=== PATIENT | female | born 1950 | race Caucasian/White ===

== ENCOUNTER → 2016-10-25 | Outpatient (CLI) | payer OTHER ==
[~2016-10-25] MED LIST: CINN1CAP2 PO; MULT-190 PO; OMEG10007 PO; SERT50TA PO; SIMV10TA5 PO; ZNTT/150 PO
== END | disposition home or self-care (01) ==
LOC: C.LABBC 08:54
PROVIDERS: ATTEND Internal Medicine
DX: E78.00 Pure hypercholesterolemia, unspecified (principal)

== ENCOUNTER → 2016-11-28 | Outpatient (CLI) | payer OTHER ==
[2016-11-28 14:35] LABS: BASO % 0.7 %; BASO ABS # 0.06 K/uL (0-0.2); COMPLETE YES; EOS % 2.7 %; HEMATOCRIT 40.7 % (37-47); IG% 0.1 %; LYMPH % 31.7 %; LYMPH ABS # 2.54 K/uL (1.2-3.4); MEAN CELL VOLUME 91.7 fL (80-100); MEAN CORPUSCULAR HEMOGLOBIN 31.8 pg (25-34); MEAN CORPUSCULAR HGB CONC 34.6 g/dl (32-36); MEAN PLATELET VOLUME 10.7 fL (7.4-10.4); MONO % 6.2 %; NEUT % 58.6 %; PLATELET COUNT 226 K/uL (130-400); RED BLOOD COUNT 4.44 M/uL (4.2-5.4); WHITE BLOOD COUNT 8.02 K/uL (4.8-10.8)
[2016-11-28 15:11] LABS: CALCIUM 10.1 mg/dl (8.5-10.1)
[2016-11-28 15:12] LABS: ALT/SGPT 27 U/L (12-78); AST/SGOT 23 U/L (15-37); BLOOD UREA NITROGEN 10 mg/dl (7-18); BUN/CREATININE RATIO 14.2 (10-20); CARBON DIOXIDE 26 mmol/L (21-32); CHLORIDE 106 mmol/L (98-107); CREATININE 0.71 mg/dl (0.60-1.20); GLUCOSE 88 mg/dl (70-99); POTASSIUM 4.2 mmol/L (3.5-5.1); SODIUM 139 mmol/L (136-145)
[2016-11-28 15:15] LABS: ALB/GLOB RATIO 1.1 (0.9-2); ALKALINE PHOSPHATASE 81 U/L (45-117)
[2016-11-28 16:48] LABS: LYME DISEASE AB IGM NEG (NEG)
[2016-11-28 16:51] LABS: LYME DISEASE AB IGG NEG (NEG)
== END | disposition home or self-care (01) ==
LOC: C.LAB1850 13:32
PROVIDERS: ATTEND Internal Medicine
DX: K57.90 Diverticulosis of intestine, part unspecified, without perforation or abscess without bleeding (principal); R42 Dizziness and giddiness

== ENCOUNTER → 2017-04-25 | Outpatient (CLI) | payer OTHER ==
[2017-04-25 11:26] LABS: ALT/SGPT 24 U/L (12-78); AST/SGOT 12 U/L (15-37); BLOOD UREA NITROGEN 10 mg/dl (7-18); BUN/CREATININE RATIO 15.8 (10-20); CALCIUM 9.3 mg/dl (8.5-10.1); CARBON DIOXIDE 27 mmol/L (21-32); CHLORIDE 108 mmol/L (98-107); CREATININE 0.66 mg/dl (0.60-1.20); GLUCOSE 96 mg/dl (70-99); POTASSIUM 3.9 mmol/L (3.5-5.1); SODIUM 140 mmol/L (136-145); TRIGLYCERIDES 160 mg/dl (0-150); VERY LOW DENSITY LIPOPROT CALC 32 mg/dl
[2017-04-25 11:32] LABS: ALB/GLOB RATIO 0.9 (0.9-2); ALKALINE PHOSPHATASE 83 U/L (45-117); CHOLESTEROL 225 mg/dl (0-200); CHOLESTEROL/HDL RATIO 3.6; HDL CHOLESTEROL 63 mg/dl; LDL CHOLESTEROL CALCULATED 130 mg/dl
== END | disposition home or self-care (01) ==
LOC: C.LABBC 08:42
PROVIDERS: ATTEND Internal Medicine
DX: E78.00 Pure hypercholesterolemia, unspecified (principal)

== ENCOUNTER → 2017-08-06 | Outpatient (CLI) | payer OTHER ==
--- NOTE | 2017-08-06 14:28 | MAMMOGRAPHY REPORT ---
UNILATERAL RIGHT DIGITAL SCREENING MAMMOGRAM TOMOSYNTHESIS WITH CAD: 08/06/2017 CLINICAL HISTORY: Asymptomatic. Personal history of breast cancer. TECHNIQUE: Right breast tomosynthesis in addition to standard 2D mammography was performed. Current jesenia barbosa was also evaluated with a Computer Aided Detection (CAD) system. COMPARISON: Comparison is made to exams dated: 06/12/2016 mammogram, 06/08/2015 mammogram, 04/22/2014 mammogram, 04/21/2013 mammogram, 04/14/2012 mammogram, and 04/06/2011 mammogram - [facility]. BREAST COMPOSITION: There are scattered areas of fibroglandular density in the right breast. FINDINGS: No suspicious mass, architectural distortion or cluster of suspicious microcalcifications is seen. IMPRESSION: ACR BI-RADS CATEGORY 1: NEGATIVE There is no mammographic evidence of malignancy. A 1 year screening mammogram is recommended. The pa tient will receive written notification of the results. Approximately 10% of breast cancers are not detected with mammography. A negative mammographic report should not delay biopsy if a clinically suggestive mass is present. Liz Crook M.D. ay/:08/06/2017 13:35:55 Application Packaging Specialist: Yuliya PIKE(Romeo)(M), [facility] letter sent: Normal 1/2 BI-RADS Code: ACR BI-RADS Category 1: Negative
== END | disposition home or self-care (01) ==
LOC: C.MAMM 12:25
PROVIDERS: ATTEND Obstetrics & Gynecology
DX: Z12.31 Encounter for screening mammogram for malignant neoplasm of breast (principal); Z90.12 Acquired absence of left breast and nipple

== ENCOUNTER → 2017-10-28 | Outpatient (CLI) | payer OTHER ==
[~2017-10-28] MED LIST changes: +RANI150T85 PO; -ZNTT/150 PO
[2017-10-28 14:49] LABS: ALBUMIN 3.9 gm/dl (3.4-5.0); ALT/SGPT 22 U/L (12-78); BLOOD UREA NITROGEN 10 mg/dl (7-18); CALCIUM 9.6 mg/dl (8.5-10.1); CARBON DIOXIDE 26 mmol/L (21-32); CHOLESTEROL 255 mg/dl (0-200); CREATININE 0.78 mg/dl (0.60-1.20); GLUCOSE 94 mg/dl (70-99); POTASSIUM 3.5 mmol/L (3.5-5.1); SODIUM 138 mmol/L (136-145)
[2017-10-28 14:52] LABS: ALKALINE PHOSPHATASE 84 U/L (45-117); AST/SGOT 15 U/L (15-37); LDL CHOLESTEROL CALCULATED 160 mg/dl; TOTAL PROTEIN 7.7 gm/dl (6.4-8.2)
== END | disposition home or self-care (01) ==
LOC: C.LABBC 09:39
PROVIDERS: ATTEND Internal Medicine
DX: E78.00 Pure hypercholesterolemia, unspecified (principal)

== ENCOUNTER → 2017-11-06 | Outpatient (CLI) | payer OTHER | END | disposition home or self-care (01) | LOC: C.PAPS 11:47 | PROVIDERS: ATTEND Obstetrics & Gynecology | DX: Z01.419 Encounter for gynecological examination (general) (routine) without abnormal findings (principal); Z78.0 Asymptomatic menopausal state ==

== ENCOUNTER → 2017-12-13 | Outpatient (CLI) | payer OTHER ==
[2017-12-13 13:21] LABS: ALBUMIN 3.8 gm/dl (3.4-5.0); TOTAL PROTEIN 7.7 gm/dl (6.4-8.2)
== END | disposition home or self-care (01) ==
LOC: C.LAB1850 10:22
PROVIDERS: ATTEND Internal Medicine
DX: E78.00 Pure hypercholesterolemia, unspecified (principal)

== ENCOUNTER 2024-01-21 14:43 | Inpatient (IN) ==
--- NOTE | 2024-01-21 14:49 | ED Triage Note ---
Date of Service January 21, 2024 Provider in Triage Author: Allan Marcano History of Present Illness This patient was briefly evaluated while in triage. An abbreviated physical exam was performed. This patient is a 73-year-old Female who presents to the ED for evaluation of tachycardia. At routine checkup today and noted to be tachycardic. Used bleach today and notes has happened before when uses bleach. No CP, dyspnea, Fevers or chills. Recently started new medicine: wellbutrin. Physical Exam GENERAL: 73 year old female. In no acute distress. SKIN: No lesions or rashes. HEART: tachycardic at regular rate. LUNGS: Clear to auscultation. NEURO: Alert and oriented. No deficits. MUSCULOSKELETAL: No deformities to inspection of the extremities. PSYCH: Patient is pleasant and answers all questions appropriately. Initial orders for labs and / or imaging were placed and patient was placed. Please see further documentation for the full ED course.
[2024-01-21] MEDS: SODIUM CHLORIDE 0.9% 1,000 ML IV ONE (15:14)
[2024-01-21 15:21] LABS: Basophils # (auto) 0.08 K/uL (0.00-0.20); Basophils % (auto) 0.9 %; Eosinophils # (auto) 0.46 K/uL (0.00-0.50); Eosinophils % (auto) 5.4 %; Hematocrit (blood only) 41.7 % (37.0-47.0); Hemoglobin 14.8 g/dl (12.0-16.0); Immature Granulocytes # (auto) 0.02 K/uL (0.01-0.20); Immature Granulocytes % (auto) 0.2 %; Lymphocytes # (auto) 3.06 K/uL (1.20-3.40); Lymphocytes % (auto) 35.8 %; Mean Corpuscular Hemoglobin 31.9 pg (25.0-34.0); Mean Corpuscular Hgb Conc 35.5 g/dL (32.0-36.0); Mean Corpuscular Volume 89.9 fL (80.0-100.0); Mean Platelet Volume 10.1 fL (9.4-12.4); Monocytes # (auto) 0.67 K/uL (0.11-0.59); Monocytes % (auto) 7.8 %; Neutrophils # (auto) 4.25 K/uL (1.40-6.50); Neutrophils % (auto) 49.9 %; Platelet Count 212 K/uL (130-400); RDW Coefficient of Variation 12.8 % (11.5-14.5); RDW Standard Deviation 41.4 fL (36.4-46.3); Red Blood Count 4.64 M/uL (4.20-5.40); White Blood Count 8.54 K/ul (4.8-10.8)
--- NOTE | 2024-01-21 15:26 | XRay Report ---
XR chest 1V portable CLINICAL HISTORY: Tachycardia COMPARISON STUDY: Chest CT April 04, 2022. Chest radiograph December 16, 2023. FINDINGS: Lung volumes are normal. There is no consolidation. Linear left basilar densities favor ate lectasis.. There is no pneumothorax or pleural effusion. Cardiac size is normal. Mediastinal contours are normal. There is no evidence for pulmonary edema. Left chest wall surgical clips are incidentall y noted. IMPRESSION: No acute cardiopulmonary findings. ACT 112: Negative or not required by law. Electronically signed by: Angel Snyder M.D. 01/21/2024 3:24 PM
[2024-01-21 15:43] LABS: Albumin Globulin Ratio 1.4 (0.9-2); Albumin Level 4.5 gm/dl (3.4-5.0); BUN Creatinine Ratio 11.5 (10-20); Bilirubin,Total 0.5 mg/dl (0.2-1.0); Creatinine Clr Calc Pharmacy 39.4 ml/min; Est GFR (African American) 61.7 ml/min; Est GFR (Non-African American) 53.3 ml/min; Globulin 3.2 gm/dl (2.5-4.0); Magnesium 1.9 mg/dl (1.7-2.4); Potassium 3.7 mmol/L (3.5-5.1); Total Protein 7.7 gm/dl (6.0-8.3)
[2024-01-21 15:49] LABS: INR 0.9 (0.9-1.1); Partial Thromboplastin Ratio 0.9; Partial Thromboplastin Time 25 Seconds (21-31); Prothrombin Time 10.3 Seconds (9.0-12.0); Troponin I High Sensitivity 3.9 pg/ml (0-14)
[2024-01-21 15:58] LABS: Thyroid Stimulating Hormone 1.843 uIu/ml (0.300-4.500)
[2024-01-21] MEDS: METOPROLOL TARTRATE 1 MG/ML VIAL IV STA ×2 (16:02→17:02)
--- NOTE | 2024-01-21 16:48 | Electrocardiogram Report ---
Test Reason : Blood Pressure : / mmHG Vent. 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 rate has increased BY [address] now depressed in Anterolateral leads Confirmed by Med Langford ([id number]) on 01/21/2024 4:48:33 PM Referred By: Confirmed By:Med Langford
--- NOTE | 2024-01-21 17:08 | Emergency Department Note ---
Impression & Plan Tachycardia, Hypertension, Palpitations, New onset atrial flutter, Atrial flutter with rapid ventricular response ED Provider Note NAME: DAVID FRANKLIN AGE: 73 SEX: F : 1950 ARRIVES VIA: Walk-In INFORMANT: Patient ED PROVIDER(S): Chris Chao MD CHIEF COMPLAINT: Tachycardia, referred. PLAN: Disposition: Admit MEDICAL DECISION MAKING: The patient is a pleasant 73-year-old woman with a past medical history of acid reflux, anxiety who presents to the emergency department via walk-in, referred by her primary care doctor for evaluation of ongoing tachycardia in the setting of being seen today for a regularly scheduled well visit and it was noted that her heart rate was in the 150s and did not improve despite being observed there. Patient reports that she noticed her heart racing today after she was cleaning her house and had use of bleach. She does point out that she has come to associated this sensation to other episodes when she had used bleach. She denies any recent fevers, chills, cough, congestion, GI or symptoms. She admits she is probably dehydrated as she did go outside yesterday and today only had her usual 3 cups of coffee. She recently started Wellbutrin a month ago. On my evaluation the patient is no distress, afebrile with heart in the 150s with blood pressure 140s-170s/80s-110s and vital signs otherwise stable. She appears clinically dry. EKG demonstrates suspected atrial flutter with heart rate of [address] elevation or depression, QTc is 434 QRS is 90. CXR negative for acute cardiopulmonary process per my personal preliminary review/interpretation. WBC, H/H and platelets within normal limits. Chemistry without metabolic acidosis. Electrolytes LFTs are unremarkable. HS troponin 3.9, within normal limits. TSH within normal limits. The patient was treated with 1 L of IV fluid hydration with normal saline. There is no significant change in her heart rate. She was subsequently given 5 mg of IV Lopressor and heart rate did improve to the 110s. Given her persistence of tachycardia with suspicion of atrial flutter she does agree plan for admission for management. A second dose of 5 mg of IV Lopressor was ordered. Case was discussed with Jose Infante [facility] PAC and Dr. Gutierrez [facility] hospitalist who will evaluate the patient for admission. Further management per admitting team. Triage Nursing notes reviewed and agree them. Prior/external medical records reviewed Vital Signs: reviewed Differential diagnosis: Premature contractions, electrolyte abnormality, cardiac dysrhythmia, thyroid dysfunction, pulmonary embolism, infection, gastrointestinal, as well as other pathologies. ER treatment provided: See below. Diagnostics interpreted by me: ECG: Suspected atrial flutter with heart rate of [address] elevation or depression, QTc is 434 QRS is 90. Cardiac Monitoring: An order for continuous cardiac monitoring was placed and demonstrated Suspected atrial flutter, 141 bpm. Laboratory studies: See below Imaging studies: See below Consultation(s): Case was discussed with Jose Infante, [facility] PAC and Dr. Gutierrez, [facility] hospitalist who will evaluate the patient for admission. HPI: The patient is a pleasant 73-year-old woman with a past medical history of acid reflux, anxiety who presents to the emergency department via walk-in, referred by her primary care doctor for evaluation of ongoing tachycardia in the setting of being seen today for a regularly scheduled well visit and it was noted that her heart rate was in the 150s and did not improve despite being observed there. Patient reports that she noticed her heart racing today after she was cleaning her house and had use of bleach. She does point out that she has come to associated this sensation to other episodes when she had used bleach. She denies any recent fevers, chills, cough, congestion, GI or symptoms. She admits she is probably dehydrated as she did go outside yesterday and today only had her usual 3 cups of coffee. She recently started Wellbutrin a month ago. ROS: See above HPI for pertinent positives & negatives. A total of 10 systems reviewed and were otherwise negative. VITALS:See Below PHYSICAL EXAMINATION: GENERAL: Awake, alert, well-appearing, in no distress HENT: Normocephalic, atraumatic. Oropharynx with dry mucous membranes and otherwise unremarkable. EYES: Normal conjunctiva. Sclera non-icteric. NECK: Supple. No nuchal rigidity. FROM. No JVD. RESPIRATORY: Clear to auscultation. CARDIAC: Tachycardic rate, normal rhythm. Extremities warm and well perfused. Pulses equal. ABDOMEN: Soft, non-distended. No tenderness to palpation. No rebound or guarding. No masses. MUSCULOSKELETAL: Chest examination reveals no tenderness. The back is symmetrical on inspection without obvious abnormality. There is no CVA tenderness to palpation. No joint edema. LOWER EXTREMITIES: Calves are equal size bilaterally and non-tender. No edema. No discoloration. NEURO: Normal sensorium. No sensory or motor deficits noted. SKIN: No rash or jaundice noted. ED COURSE: Critical Care: I have personally spent greater than 35 minutes of critical care time in the direct management of this patient. This includes bedside care, interpretation of diagnostic studies, and testing, discussion with consultants, patient, and family members, and other required patient management activities. This 35 minutes is in excess of all separately billable procedures. Chris Chao MD Past Med/Surg History Problem List (Updated 01/21/24 @ 21:12 by Chris Chao MD) Atrial flutter with rapid ventricular response (Acute) New onset atrial flutter (Acute) Palpitations (Acute) Hypertension (Acute) Tachycardia (Acute) Abnormal breathing sounds Hyperglycemia Tubular adenoma of colon HEMICOLECTOMY Tricuspid regurgitation Mild TR on 2019 echo. SNHL (sensorineural hearing loss) Other ovarian cyst, left side Lichen sclerosus et atrophicus Internal hemorrhoids History of malignant neoplasm of breast Gastroesophageal reflux disease Atrial premature complex Anxiety Abnormal ultrasound of neck Tonsillar enlargement Seasonal allergies Adverse reaction to anesthetic agent vomiting after long surgery Gingival cyst Allergic rhinitis Sialoadenitis of submandibular gland Hyperlipidemia History of colon polyps Medical History Encounter for vitamin deficiency screening Chronic gastritis HX: breast cancer dx 1994 - Lt breast - treated surgically Anxiety and depression Encounter for immunization Dysuria Vagina, candidiasis Lymphadenopathy of right cervical region Palpable lymph node Depression Hypercholesterolemia Surgical History H/O excision of mass Rt submandibular Nausea and vomiting after administration of anesthetic agent History of esophagogastroduodenoscopy (EGD) History of colonoscopy History of cholecystectomy History of herniorrhaphy History of tooth extraction History of cataract surgery RT/LEFT H/O laparoscopy H/O right hemicolectomy REOCCURING ADENOMA (BENIGN) Hernia lower abdominal incisional H/O section H/O mastectomy LEFT WITH RECONSTRUCTION Family History Mother Diabetes Lung cancer Family history of diabetes mellitus Brother Diabetes Other No family history of adverse response to anesthesia No family history of bleeding disorder Denies family history of Colon cancer Ovarian cancer Prostate cancer Myocardial infarction Breast cancer Social History Smoking Status: Never smoker Second Hand Exposure: Yes ( A CHILD); Do You Dip or Chew Tobacco: No; Hx Alcohol Use: Yes Alcohol type: wine Alcohol Intake Frequency: 2-3 x/Week Hx Substance Use: No Preferred Language: Amharic Communication Ability: Effective Visual Impairment: No Limitations Hearing Ability: Normal Stencil Inspector Required: No Beliefs That Will Affect Care: None marital status: Current Living Situation: Spouse current occupational status: retired Feels Safe at Home: Yes Dental Care, Regularly: Yes Physical Activity Frequency: Does not Exercise Seatbelt Use: always Sunscreen Use: Yes Assistive Devices: Glasses Allergies Allergies Allergy/AdvReac Type Severity Reaction Status Date / Time Sulfa (Sulfonamide Allergy Intermediate RASH Verified 01/21/24 16:49 Antibiotics) atorvastatin AdvReac Intermediate muscle Verified 01/21/24 16:49 weakness buspirone [From BuSpar] AdvReac Intermediate dizziness Verified 01/21/24 16:49 lovastatin AdvReac Intermediate muscle Verified 01/21/24 16:49 weakness pravastatin AdvReac Intermediate muscle Verified 01/21/24 16:49 weakness simvastatin AdvReac Intermediate muscle Verified 01/21/24 16:49 weakness venlafaxine AdvReac Intermediate Hypertensio Verified 01/21/24 16:49 n Home Meds Home Medications Medication Instructions Recorded Confirmed vit C 250 mg-vit E 90 mg-zinc 40 1 tab PO BID 04/19/20 01/21/24 mg-copper 1 [id number] capsule (PreserVision AREDS-2) fluticasone propionate 50 1 spray intranasal DAILY PRN 01/06/21 01/21/24 mcg/actuation nasal Allergy Symptoms spray,suspension (Flonase Allergy Relief) multivitamin 1 tab PO QAM 01/06/21 01/21/24 hydrocortisone 2.5 % topical 1 applic topical BID PRN 01/21/24 01/21/24 ointment DIRECTED rosuvastatin 5 mg tablet 5 mg PO 2XWK 01/21/24 01/21/24 Previous Rx's Medication Instructions Recorded escitalopram oxalate 20 mg tablet 20 mg PO DAILY #90 tabs 03/25/24 metronidazole 0.75 % topical cream 1 applic topical .COMPLEX #45 grams 10/30/23 pantoprazole 20 mg tablet,delayed 20 mg PO QAM PRN GERD #30 tabs 12/19/23 release bupropion HCl 150 mg 24 hr tablet, 150 mg PO QAM #30 tabs 01/13/24 extended release (Wellbutrin XL) Results & Data (ED) Vital Signs Vital Signs - 24 hr 01/21/24 14:46 01/21/24 15:16 01/21/24 15:17 Temperature 36.5 C Temperature Source Temporal Artery Scan Pulse Rate 154 H Pulse Rate [Apical] 138 H Pulse Strength [Apical] Respiratory Rate 20 18 Respiratory Effort / Characteristics Non-Labored Spontaneous Respiratory Depth Normal Respiratory Pattern Regular Blood Pressure 154/83 H Blood Pressure [Right Arm] 160/114 H Blood Pressure Mean 106 Blood Pressure Mean [Right Arm] 129 Pulse Oximetry 99 94 93 Oxygen Delivery Method Room Air Room Air Room Air Sepsis Recent Fever Within 48 Hours No Sepsis New/Unexplained Change in Mental Status N/A Sepsis Action Taken by Nursing No Action Required 01/21/24 15:57 01/21/24 16:02 01/21/24 16:23 Temperature Temperature Source Pulse Rate 141 H 143 H 117 H Pulse Rate [Apical] Pulse Strength [Apical] Respiratory Rate Respiratory Effort / Characteristics Respiratory Depth Respiratory Pattern Blood Pressure 177/114 H 159/113 H Blood Pressure [Right Arm] Blood Pressure Mean Blood Pressure Mean [Right Arm] Pulse Oximetry Oxygen Delivery Method Sepsis Recent Fever Within 48 Hours Sepsis New/Unexplained Change in Mental Status Sepsis Action Taken by Nursing 01/21/24 16:51 01/21/24 17:02 Temperature Temperature Source Pulse Rate 114 H Pulse Rate [Apical] 112 H Pulse Strength [Apical] Normal Respiratory Rate 19 Respiratory Effort / Characteristics Non-Labored Spontaneous Respiratory Depth Normal Respiratory Pattern Regular Blood Pressure 148/103 H Blood Pressure [Right Arm] 152/101 H Blood Pressure Mean Blood Pressure Mean [Right Arm] 118 Pulse Oximetry 98 Oxygen Delivery Method Room Air Sepsis Recent Fever Within 48 Hours Sepsis New/Unexplained Change in Mental Status Sepsis Action Taken by Nursing Laboratory Data Attestation: I reviewed the patient's lab results. 01/21/24 15:05 01/21/24 15:05 Lab Results 06/25/24 06/25/24 Range/Units 15:05 15:07 WBC 8.54 (4.8-10.8) K/ul RBC 4.64 (4.20-5.40) M/uL Hgb 14.8 (12.0-16.0) g/dl Hct 41.7 (37.0-47.0) % MCV 89.9 (80.0-100.0) fL MCH 31.9 (25.0-34.0) pg MCHC 35.5 (32.0-36.0) g/dL RDW Std Deviation 41.4 (36.4-46.3) fL RDW Coeff of Angel 12.8 (11.5-14.5) % Plt Count 212 (130-400) K/uL MPV 10.1 (9.4-12.4) fL Immature Gran % (Auto) 0.2 % Neut % (Auto) 49.9 % Lymph % (Auto) 35.8 % Griggs % (Auto) 7.8 % Eos % (Auto) 5.4 % Baso % (Auto) 0.9 % Neut # (Auto) 4.25 (1.40-6.50) K/uL Lymph # (Auto) 3.06 (1.20-3.40) K/uL Griggs # (Auto) 0.67 H (0.11-0.59) K/uL Eos # (Auto) 0.46 (0.00-0.50) K/uL Baso # (Auto) 0.08 (0.00-0.20) K/uL Immature Gran # (Auto) 0.02 (0.01-0.20) K/uL PT 10.3 (9.0-12.0) Seconds INR 0.9 (0.9-1.1) APTT 25 (21-31) Seconds PTT Ratio 0.9 D-Dimer 660 H* (0-500) ug/L FEU Sodium 137 (136-145) mmol/L Potassium 3.7 (3.5-5.1) mmol/L Chloride 104 (98-107) mmol/L Carbon Dioxide 24 (21-32) mmol/L Anion Gap 9 (3-11) BUN 12 (6-23) mg/dl Creatinine 1.04 (0.6-1.2) mg/dl Est Cr Clr Drug Dosing 39.4 ml/min Est GFR ( Amer) 61.7 ml/min Est GFR (Non-Af Amer) 53.3 ml/min BUN/Creatinine Ratio 11.5 (10-20) Glucose 98 (70-99(Fasting)) mg/dl Calcium 10.0 (8.6-10.3) mg/dl Magnesium 1.9 (1.7-2.4) mg/dl Total Bilirubin 0.5 (0.2-1.0) mg/dl AST 21 (13-39) U/L ALT 17 (7-52) U/L Alkaline Phosphatase 74 (34-104) U/L Troponin I High Sens 3.9 (0-14) pg/ml Total Protein 7.7 (6.0-8.3) gm/dl Albumin 4.5 (3.4-5.0) gm/dl Globulin 3.2 (2.5-4.0) gm/dl Albumin/Globulin Ratio 1.4 (0.9-2) TSH 1.843 (0.300-4.500) uIu/ml Free T4 0.85 (0.61-1.60) ng/dl Free T3 3.02 (2.3-4.2) pg/ml Administered Medications Heparin Sodium/Dextrose (Heparin Sodium/Dextrose) 25,000 units in 500 mls @ 12 mls/hr IV .Q24H [facility]; Protocol Stop: 02/20/24 18:14 Last Admin: 01/21/24 18:29 Dose: 600 units/hr, 12 mls/hr Documented By: THOMAS Co-signed By: ALONDRA Discontinued Medications Heparin Sodium (Porcine) (Heparin Sod (Porcine) 1000 Unit/Ml) 3,000 units IV NOW ONE Stop: 01/21/24 18:16 Last Admin: 01/21/24 18:28 Dose: 3,000 units Documented By: THOMAS Co-signed By: ALONDRA Heparin Sodium/Dextrose (Heparin Iv Adult Wt-Based Low-Dose W/ Initial Bolus Protocol) 1 each IV Q15M [facility]; Protocol Stop: 01/21/24 18:31 Last Admin: 01/21/24 18:32 Dose: Not Given Documented By: THOMAS Sodium Chloride (Nss) 1,000 mls @ 999 mls/hr IV .Q1H1M ONE Stop: 01/21/24 16:03 Last Infusion: 01/21/24 16:23 Dose: Infused Documented By: Admin: 01/21/24 15:14 Dose: 999 mls/hr Documented By: THOMAS Magnesium Sulfate/Dextrose (Magnesium Sulfate / D5w) 1 gm in 100 mls @ 50 mls/hr IV 1730 ONE Stop: 01/21/24 19:29 Last Infusion: 01/21/24 19:59 Dose: Infused Documented By: Admin: 01/21/24 17:25 Dose: 50 mls/hr Documented By: WILLIAM Ioversol (Optiray 320 125ml) 119 ml IV ONCE ONE Stop: 01/21/24 18:07 Last Admin: 01/21/24 18:07 Dose: 119 ml Documented By: HENNA Metoprolol Tartrate (Metoprolol Tartrate 1 Mg/Ml Vial) 5 mg IV NOW STA Stop: 01/21/24 16:00 Last Admin: 01/21/24 16:02 Dose: 5 mg Documented By: THOMAS Metoprolol Tartrate (Metoprolol Tartrate 1 Mg/Ml Vial) 5 mg IV NOW STA Stop: 01/21/24 16:57 Last Admin: 01/21/24 17:02 Dose: 5 mg Documented By: THOMAS Potassium Chloride (Potassium Chloride Crtab 20 Meq Tabcr) 40 meq PO NOW STA Stop: 01/21/24 17:18 Last Admin: 01/21/24 17:25 Dose: 40 meq Documented By: WILLIAM Imaging Data Radiologist's Impression: Chest X-Ray 01/21/24 14:49 XR chest 1V portable CLINICAL HISTORY: Tachycardia COMPARISON STUDY: Chest CT April 04, 2022. Chest radiograph December 16, 2023. FINDINGS: Lung volumes are normal. There is no consolidation. Linear left basilar densities favor atelectasis.. There is no pneumothorax or pleural effusion. Cardiac size is normal. Mediastinal contours are normal. There is no evidence for pulmonary edema. Left chest wall surgical clips are incidentally noted. IMPRESSION: No acute cardiopulmonary findings. ACT 112: Negative or not required by law. Electronically signed by: Angel Snyder M.D. 01/21/2024 3:24 PM Discharge Plan Visit Data Chief Complaint: Referred by Doctor Stated Complaint: DOCTOR REFERRED ED Provider: Chris Chao Discharge Problem: Tachycardia, Hypertension, Palpitations, New onset atrial flutter, Atrial flutter with rapid ventricular response Patient Disposition: Admitted As Inpatient Discharge Instructions Interventions: ED Discharge Assessment Last Done: 01/21/24 18:37 Discharge Problem: Hypertension Qualifiers: Hypertension type: unspecified Qualified Code(s): I10 - Essential (primary) hypertension
--- NOTE | 2024-01-21 17:23 | History & Physical Report ---
Date of Service January 21, 2024 Assessment & Plan (1) Tachycardia: Plan: Admit to the PCU on telemetry Patient is currently stable with heart rate in the low 100s to 110s at the time of exam Was initially sent to the ED from her PCPs office after being found to be tachycardic with heart rate in the 130s Patient reports minimal symptoms initially while walking into her PCPs office, currently asymptomatic at rest Patient's initial EKG while heart rate was in the 140s appeared more consistent with sinus tachycardia, however once her heart rate was slowed to the 110s it appears she has flutter waves Initial high-sensitivity troponin was within normal limits, mag was noted to be 1.9 and potassium 3.7 Patient was given a total of 1 L normal saline and 2 doses of 5 mg IV Lopressor prior to admission Review of her medication list shows Wellbutrin does have tachycardia as a possible side effect, she did just start this approximate 1 month ago, we will hold for now. Stat D-dimer ordered at the time of admission is elevated at 660, therefore we will order a stat CT of the chest with IV contrast with PE protocol to monitor for pulmonary emboli At this time we will begin a low-dose, weight-based heparin drip with bolus, if her CT chest is positive for PE and we will adjust her heparin drip dosing Will add as needed IV Lopressor for sustained heart rate greater than 130 overnight Will obtain 2-hour high-sensitivity troponin now patient still stable and will hold further trending overnight Cardiology consult has been ordered Will obtain TTE tomorrow Heparin drip for DVT prophylaxis Heart healthy diet AM CBC, CMP, mag, PT/INR (2) Hyperlipidemia: Plan: continue rosuvastatin (3) Anxiety: Plan: Holding Wellbutrin for now with possible side effect of tachycardia Can continue Lexapro at this time Plan The patient was discussed with Dr. Gutierrez at the time of the admission History of Present Illness Chief Complaint: Tachycardia Primary Care Provider: Maritza Hu MD Norma is a 73-year-old female with a past medical history significant for anxiety, GERD, hyperlipidemia, who presented to the [facility] ED on 01/21/2024 at the recommendation of her PCP after she was noted to be persistently tachycardic while at her PCPs office. Per the ED staff and review of the PCP note from today the patient presented to the PCP office due to two 1 month follow-up as she been started on Wellbutrin approximately 1 month ago for her anxiety. While at the office she was noted to be tachycardic with heart rate into the 130s. On arrival to the ED she was noted to be tachycardic with heart rate in the 130s to 150s but otherwise stable. Labs including CBC, INR, CMP, high-sensitivity troponin, TSH were within normal limits. Potassium was noted to be 3.7 and magnesium was noted to be 1.9. Her initial EKG was obtained when heart rate was in the 140s and was initially read as sinus tachycardia. Chest x-ray was read as negative for acute findings. The patient was initially given 1 L normal saline in the ED and 5 mg IV Lopressor. Repeat EKGs were obtained when heart rate was in the 110s and the patient appeared to have flutter waves in leads V3 and lead to. Prior to admission she was given an additional 5 mg IV Lopressor. Patient was sitting in bed in no acute distress at the time exam with her bedside. She confirms the above history. States that she had a distant history of tachycardia and was seen by the [facility] cardiology group in the past for this as she had a Holter monitor placed. She states at that time because the episodes were very infrequent and lasted short period of time no intervention or medication warranted. Patient denies recent fever/chills, chest pain, pleuritic chest pain, cough/hemoptysis, abdominal pain, nausea/vomiting, diarrhea, dysuria, hematuria, melena, lower extremity swelling, and recent trauma. She is a full code and her is her POA. I had a discussion with the patient and her regarding starting anticoagulation tonight with possible atrial flutter and [id number] score of 2. The patient denies previous history of major bleeding and denies any recent bleeding. At this time she is in agreement with starting heparin drip but would want to discuss further with cardiology tomorrow regarding long-term anticoagulation if required. Please refer to Dr. Gutierrez attestation for any changes to the treatment plan Allergies Allergy/AdvReac Type Severity Reaction Status Date / Time Sulfa (Sulfonamide Allergy Intermediate RASH Verified 01/21/24 16:49 Antibiotics) atorvastatin AdvReac Intermediate muscle Verified 01/21/24 16:49 weakness buspirone [From BuSpar] AdvReac Intermediate dizziness Verified 01/21/24 16:49 lovastatin AdvReac Intermediate muscle Verified 01/21/24 16:49 weakness pravastatin AdvReac Intermediate muscle Verified 01/21/24 16:49 weakness simvastatin AdvReac Intermediate muscle Verified 01/21/24 16:49 weakness venlafaxine AdvReac Intermediate Hypertensio Verified 01/21/24 16:49 n Home Medications Medication Instructions Recorded Confirmed Type vit C 250 mg-vit E 90 mg-zinc 40 1 tab PO BID 04/19/20 01/21/24 History mg-copper 1 [id number]-khyrog-coxysh capsule (PreserVision AREDS-2) fluticasone propionate 50 1 spray intranasal DAILY PRN 01/06/21 01/21/24 History mcg/actuation nasal Allergy Symptoms spray,suspension (Flonase Allergy Relief) multivitamin 1 tab PO QAM 01/06/21 01/21/24 History escitalopram oxalate 20 mg tablet 20 mg PO DAILY #90 tabs 10/21/23 01/21/24 Rx metronidazole 0.75 % topical cream 1 applic topical .COMPLEX #45 grams 10/30/23 01/21/24 Rx pantoprazole 20 mg tablet,delayed 20 mg PO QAM PRN GERD #30 tabs 12/19/23 01/21/24 Rx release bupropion HCl 150 mg 24 hr tablet, 150 mg PO QAM #30 tabs 01/13/24 01/21/24 Rx extended release (Wellbutrin XL) hydrocortisone 2.5 % topical 1 applic topical BID PRN 01/21/24 01/21/24 History ointment DIRECTED rosuvastatin 5 mg tablet 5 mg PO 2XWK 01/21/24 01/21/24 History Past Med/Surg History Problem List (Updated 01/21/24 @ 17:46 by Chris Chao MD) Hypertension (Acute) Tachycardia (Acute) Abnormal breathing sounds Hyperglycemia Tubular adenoma of colon HEMICOLECTOMY Tricuspid regurgitation Mild TR on 2019 echo. SNHL (sensorineural hearing loss) Other ovarian cyst, left side Lichen sclerosus et atrophicus Internal hemorrhoids History of malignant neoplasm of breast Gastroesophageal reflux disease Atrial premature complex Anxiety Abnormal ultrasound of neck Tonsillar enlargement Seasonal allergies Adverse reaction to anesthetic agent vomiting after long surgery Gingival cyst Allergic rhinitis Sialoadenitis of submandibular gland Hyperlipidemia History of colon polyps Medical History Encounter for vitamin deficiency screening Chronic gastritis HX: breast cancer Anxiety and depression Encounter for immunization Dysuria Vagina, candidiasis Lymphadenopathy of right cervical region Palpable lymph node Depression Hypercholesterolemia Surgical History H/O excision of mass Nausea and vomiting after administration of anesthetic agent History of esophagogastroduodenoscopy (EGD) History of colonoscopy History of cholecystectomy History of herniorrhaphy History of tooth extraction History of cataract surgery H/O laparoscopy H/O right hemicolectomy Hernia H/O section H/O mastectomy Family History Mother Diabetes Lung cancer Family history of diabetes mellitus Brother Diabetes Other No family history of adverse response to anesthesia No family history of bleeding disorder Denies family history of Colon cancer Ovarian cancer Prostate cancer Myocardial infarction Breast cancer Social History Smoking Status: Never smoker Second Hand Exposure: Yes ( A CHILD); Do You Dip or Chew Tobacco: No; Hx Alcohol Use: Yes Alcohol type: wine Alcohol Intake Frequency: 2-3 x/Week Hx Substance Use: No Preferred Language: Bulgarian Communication Ability: Effective Visual Impairment: No Limitations Hearing Ability: Normal Program Advocate Required: No Beliefs That Will Affect Care: None marital status: Current Living Situation: Spouse current occupational status: retired Feels Safe at Home: Yes Dental Care, Regularly: Yes Physical Activity Frequency: Does not Exercise Seatbelt Use: always Sunscreen Use: Yes Assistive Devices: Glasses Physical Exam Physical Exam: Physical Exam: General: In no acute distress, stated age, well-nourished, non-toxic appearing HEENT: Normocephalic, atraumatic, no scleral icterus, pupils around round, symmetrical, and reactive to light, moist mucus membranes, trachea midline, no thyromegaly Chest/Pulm: No respiratory distress, symmetrical chest expansion, clear breath sounds throughout Cardiac: tachycardic rate, regular rhythm, no murmurs noted Abdomen: Negative for ascites and bruising, normoactive bowel sounds, soft, non-tender to palpation throughout Musculoskeletal: Symmetrical and without signs of acute trauma, upper and lower extremities with full ROM, no atrophy, spasticity, or flaccidity Extremities: Radial, dorsalis pedis, and posterior tibial pulses are intact and symmetrical, no edema noted in the BL LE's Skin: Warm, dry, no rashes , lesions, or scars noted Neuro: Alert and oriented to person, place, month, year, and president, no focal defects, no tremors noted Psych: No acute distress, calm and cooperative during the exam Results & Data Results & Data Vital Signs (Past 12 Hours) Vital Signs Temp Pulse Pulse Resp BP BP Pulse Ox 01/21/24 17:02 114 H 148/103 H 01/21/24 16:51 112 H 19 152/101 H 98 01/21/24 16:23 117 H 159/113 H 01/21/24 16:02 143 H 177/114 H 01/21/24 15:57 141 H 01/21/24 15:17 93 01/21/24 15:16 138 H 18 160/114 H 94 01/21/24 14:46 36.5 C 154 H 20 154/83 H 99 O2 Del Method 01/21/24 17:02 01/21/24 16:51 Room Air 01/21/24 16:23 01/21/24 16:02 01/21/24 15:57 01/21/24 15:17 Room Air 01/21/24 15:16 Room Air 01/21/24 14:46 Room Air Laboratory Results Abnormal lab results 01/21/24 01/21/24 01/21/24 Range/Units 15:05 15:07 Unknown Fannin # (Auto) 0.67 H (0.11-0.59) K/uL D-Dimer 660 H* (0-500) ug/L FEU Urine pH 8.0 H (4.5-7.5) Ur Leukocyte Esterase Trace H (Negative) Diagnostic Findings Chest X-Ray 01/21/24 14:49 XR chest 1V portable CLINICAL HISTORY: Tachycardia COMPARISON STUDY: Chest CT April 04, 2022. Chest radiograph December 16, 2023. FINDINGS: Lung volumes are normal. There is no consolidation. Linear left basilar densities favor atelectasis.. There is no pneumothorax or pleural effusion. Cardiac size is normal. Mediastinal contours are normal. There is no evidence for pulmonary edema. Left chest wall surgical clips are incidentally noted. IMPRESSION: No acute cardiopulmonary findings. ACT 112: Negative or not required by law. Electronically signed by: Angel Snyder M.D. 01/21/2024 3:24 PM ECG Additional Comments: Sinus tachycardia Left anterior fascicular block Old Inferior infarct (cited on or before 04-APR-2022) ST depression in Anterolateral leads Abnormal ECG When compared with ECG of 04-APR-2022 14:41, Vent. rate has increased BY [address] now depressed in Anterolateral leads Confirmed by Med Langford ([id number]) on 01/21/2024 4:48:33 PM Code Status & VTE Plan Code Status Full code VTE Prophylaxis Plan VTE Prophylaxis will be ordered: Yes Supervising Physician Co-Signing Physician Notes I have personally seen, evaluated and examined the patient. I have also personally discussed the management of the patient with the resident physician/PRADEEP and I agree with the exam findings documented in the history and physical examination and the documented assessment and plan unless otherwise stated below. Brief Exam: In general is a pleasant 73-year-old female who is alert and oriented x 3 at the time of my exam. She interacts appropriately and pleasantly. HEENT: Normocephalic atraumatic Heart: Regular rate and rhythm at this time it appears she is converted to normal sinus rhythm. We have ordered converted EKG which is ordered but pending at the time of this addendum. Lungs: Are clear bilaterally. Extremities: Are intact there is no clubbing cyanosis or edema. Abdomen: Soft and nontender. Neurological: Alert and orient x 3 with no focal deficit on gross exam. Assessment/plan: As described above. Please refer to orders for further planning. Await echocardiogram. Continue heparinization. Tomorrow consideration to be converted over to a oral anticoagulation therapy as necessary/indicated. PG Care Time/CCT Total # of Minutes Spent Total Time Spent with Patient: Total time spent is greater than 50% in coordination of care (as documented) at patient's floor/unit and/or counseling patient: C[place] [address] INT INP/OBS CARE 3/75MIN Patient Type Established Medical Decision Making High Complexity Diagnoses Tachycardia R00.0 Hyperlipidemia E78.5 Anxiety F41.9
[2024-01-21] MEDS: MAGNESIUM SULFATE / D5W 1 GM/100 ML BAG IV ONE (17:25)
[2024-01-21] MEDS: POTASSIUM CHLORIDE CRTAB 20 MEQ TABCR PO STA (17:25)
[2024-01-21 17:26] LABS: Appearance Urine Clear (Clear); Bacteria Urine Automated None Seen (None Seen); Bilirubin Urine Negative (Negative); Blood Urine Negative (Negative); Cast Urine Automated 0-2 /lpf (0-2); Color Urine Yellow; Epithelial Cell Urine Auto 0-2 /hpf (0-2); Glucose Urine UA Negative (Negative); Ketones Urine Negative (Negative); Leukocyte Esterase Urine Trace (Negative); Nitrite Urine Negative (Negative); Protein Urine Negative (Negative); RBC Urine Automated 0-2 /hpf (0-2); Specific Gravity Urine 1.006 (1.000-1.030); Urobilinogen Urine Negative (Negative); WBC Urine Automated 0-5 /hpf (0-5)
[2024-01-21 17:33] LABS: D Dimer 660 ug/L FEU (0-500)
[2024-01-21 17:49] LABS: T4 Free Thyroxine 0.85 ng/dl (0.61-1.60)
[2024-01-21] MEDS: OPTIRAY 320 125ml IV ONE (18:07)
--- NOTE | 2024-01-21 18:24 | CT Scan Report ---
CT angio chest PE protocol CLINICAL HISTORY: PE TECHNIQUE: Multidetector row helical CT of the chest was performed with angiographic protocol. Luna l and sagittal reformations were obtained. Coronal and sagittal MIPS were obtained from the axial joseph a set and were submitted for review. Automated dose lowering techniques and/or adjustment according to patient size were utilized for this exam. CT DOSE: 567.66 mGy.cm Comparison: Comparison is made to CTA chest 04/04/2022 FINDINGS: Lungs and pleura: Atelectasis versus scarring is seen in the dependent portions of the lungs. Heart and pericardium: Heart size is normal. No pericardial effusion. Vessels: No evidence of pulmonary embolism. Mediastinum and mehdi: Unremarkable. Chest wall and lower neck: Left axillary clips are seen. Abdomen: Unremarkable. Bones: Degenerative changes in the thoracic spine. IMPRESSION: No acute abnormality and in particular no evidence of pulmonary embolus. ACT 112: Negative or not required by law. Electronically signed by: Aj Simpson M.D. 01/21/2024 6:22 PM
[2024-01-21] MEDS: HEPARIN SOD (PORCINE) 1000 UNIT/ML IV ONE (18:28)
[2024-01-21] MEDS: HEPARIN SODIUM/DEXTROSE 25,000 UNITS/500 ML BAG IV SCH (18:29)
[2024-01-21] MEDS: Heparin IV Adult Wt-Based Low-Dose w/ INITIAL Bolus Protocol IV SCH (18:32)
[2024-01-21] MEDS ORDERED: PANTOprazole 40 MG TAB PO PRN (19:40)
[2024-01-21] MEDS ORDERED: hydrALAZINE HCL 20 MG/ML VIAL IV PRN (21:10)
[2024-01-21] MEDS: ESCITALOPRAM OXALATE 20 MG TAB PO SCH (23:35)
[2024-01-22 01:30] LABS: ANTI-Xa, UFH(UnfractionatedHep 0.23 IU/ml (0.3-0.7)
[2024-01-22 07:21] LABS: Basophils # (auto) 0.08 K/uL (0.00-0.20); Basophils % (auto) 1.1 %; Eosinophils # (auto) 0.51 K/uL (0.00-0.50); Eosinophils % (auto) 7.3 %; Hematocrit (blood only) 40.8 % (37.0-47.0); Hemoglobin 14.2 g/dl (12.0-16.0); Immature Granulocytes # (auto) 0.01 K/uL (0.01-0.20); Immature Granulocytes % (auto) 0.1 %; Lymphocytes # (auto) 2.93 K/uL (1.20-3.40); Lymphocytes % (auto) 41.9 %; Mean Corpuscular Hemoglobin 32.1 pg (25.0-34.0); Mean Corpuscular Hgb Conc 34.8 g/dL (32.0-36.0); Mean Corpuscular Volume 92.1 fL (80.0-100.0); Mean Platelet Volume 10.3 fL (9.4-12.4); Monocytes # (auto) 0.51 K/uL (0.11-0.59); Monocytes % (auto) 7.3 %; Neutrophils # (auto) 2.95 K/uL (1.40-6.50); Neutrophils % (auto) 42.3 %; Platelet Count 203 K/uL (130-400); RDW Coefficient of Variation 12.9 % (11.5-14.5); RDW Standard Deviation 43.3 fL (36.4-46.3); Red Blood Count 4.43 M/uL (4.20-5.40); White Blood Count 6.99 K/ul (4.8-10.8)
[2024-01-22 07:33] LABS: ANTI-Xa, UFH(UnfractionatedHep 0.18 IU/ml (0.3-0.7)
[2024-01-22 07:36] LABS: Prothrombin Time 10.5 Seconds (9.0-12.0)
[2024-01-22 07:46] LABS: Albumin Globulin Ratio 1.3 (0.9-2); Albumin Level 3.9 gm/dl (3.4-5.0); BUN Creatinine Ratio 10.1 (10-20); Bilirubin,Total 0.5 mg/dl (0.2-1.0); Calcium 9.1 mg/dl (8.6-10.3); Creatinine Clr Calc Pharmacy 59.6 ml/min; Est GFR (African American) 100.1 ml/min; Est GFR (Non-African American) 86.4 ml/min; Globulin 3.1 gm/dl (2.5-4.0); Magnesium 2.2 mg/dl (1.7-2.4); Potassium 4.3 mmol/L (3.5-5.1)
[2024-01-22] MEDS: HEPARIN SOD (PORCINE) 1000 UNIT/ML IV ONE (08:04)
--- NOTE | 2024-01-22 09:11 | XCELERA ---
[id number] \\[id number]
--- NOTE | 2024-01-22 10:00 | Electrocardiogram Report ---
Test Reason : Blood Pressure : / mmHG Vent. Rate : 047 BPM Atrial Rate : 047 BPM P-R Int : 154 ms QRS Dur : 092 ms QT Int : 464 ms P-R-T Axes : 019 -26 036 degrees QTc Int : 410 ms Sinus bradycardia Low voltage QRS Possible Old Inferior infarct (cited on or before 04-APR-2022) Abnormal ECG When compared with ECG of 21-JAN-2024 16:48, Vent. rate has decreased BY 66 BPM P wave morphology has changed Confirmed by Med Langford ([id number]) on 01/22/2024 9:59:54 AM Referred By: REFERRED SELF Confirmed By:Med Langford
--- NOTE | 2024-01-22 10:03 | Electrocardiogram Report ---
Test Reason : Blood Pressure : / mmHG Vent. Rate : 113 BPM Atrial Rate : 113 BPM P-R Int : 134 ms QRS Dur : 088 ms QT Int : 346 ms P-R-T Axes : 004 -67 011 degrees QTc Int : 474 ms Sinus tachycardia vs. atrial tachycardia Pulmonary disease pattern Left anterior fascicular block Old Inferior infarct (cited on or before 04-APR-2022) Abnormal ECG When compared with ECG of 21-JAN-2024 14:55, ST no longer depressed in Anterior leads HR has decreased by 28 bpm Confirmed by Med Langford ([id number]) on 01/22/2024 10:03:20 AM Referred By: REFERRED SELF Confirmed By:Med Langford
--- NOTE | 2024-01-22 11:28 | Hospitalist Progress Note ---
Date of Service January 22, 2024 Assessment & Plan (1) Tachycardia: Plan: Patient was sent to the hospital from her PCPs office after she was found to be tachycardic Patient denies chest pain, palpitations In the emergency department, EKG was done which showed evidence of sinus tachycardia, or possibly atrial tachycardia,Some ST changes on the anterior leads Patient received a couple of doses of Lopressor and IV fluids. She was started on heparin by weight CT chest did not show any evidence of PE Cardiology has been consulted 2D echo was done with did not show any acute pathology, ejection fraction 50 to 55%, no wall motion abnormalities Awaiting cardiology recommendations. (2) Hyperlipidemia: Plan: continue rosuvastatin (3) Anxiety: Plan: Holding Wellbutrin for now with possible side effect of tachycardia Can continue Lexapro at this time Plan Continue to monitor Await recommendations by cardiology Admission and Anticipated Discharge Date Admission Date: January 21, 2024 Subjective Patient seen and examined, denies any chest pain or shortness of breath or palpitations Review of Systems Review of Systems: All systems reviewed are negative, apart from the ones contained in the history. Physical Exam Physical Exam: The patient is awake, alert and oriented 3, well developed and well nourished, normocephalic and atraumatic, lying in bed and in no acute distress. HEENT--PERRL, EOMI, mucous membranes and oropharynx mildly dry Neck--supple. No JVD. No bruits. Thyroid normal, trachea midline, no adenopathy. Heart--normal S1 and S2. No murmurs, rubs or gallops. Lungs--clear bilaterally, no respiratory distress, no accessory muscle use. Abdomen--normal bowel sounds and soft. Extremities--no cyanosis or clubbing. No edema. Dermatologic--normal skin turgor, normal color, no abnormal lymph nodes, no rash. Neurologic--cranial nerves II through XII grossly intact. Rheumatologic--normal range of motion. Psychiatric--normal affect. Results & Data Results & Data Vital Signs (Past 12 Hours) Vital Signs Temp Pulse Pulse Resp BP Pulse Ox O2 Del Method 01/22/24 10:49 97.9 F 55 L 19 116/68 95 Room Air 01/22/24 07:58 49 L 01/22/24 07:15 98.1 F 58 L 18 154/71 H 97 Room Air 01/22/24 02:27 97.9 F 56 L 20 116/67 96 Room Air PG Care Time/CCT Total # of Minutes Spent Total Time Spent with Patient: Total time spent is greater than 50% in coordination of care (as documented) at patient's floor/unit and/or counseling patient: Coding Level of Care Code 66228 SUB INP/OBS CARE 2/35MIN Diagnoses Tachycardia R00.0 Hyperlipidemia E78.5 Anxiety F41.9 Time Spent (min) 35
--- NOTE | 2024-01-22 11:30 | Cardiology Consultation ---
Date of Consultation January 22, 2024 Assessment & Plan (1) Palpitations: (2) Atrial tachycardia: (3) Hypertension: Plan 73-year-old woman with longstanding palpitations but no prior cardiac history admitted with tachypalpitations which appeared to be an atrial tachycardia. Although atrial flutter is a consideration, her P waves appear to discrete and although flutter waves may be difficult to see at higher heart rates (such as her initial ECG at 144 bpm), one would expect to be able to discern flutter waves at lower heart rates (such as her second ECG at 113 bpm). On both tracings, discrete P waves are apparent. Given the paroxysmal nature of onset and resolution and the difference in P wave morphology, atrial tachycardia is much more likely than sinus tachycardia. Since she did respond well to IV beta-adama in the emergency department, recommend initiating low-dose oral beta-adama (metoprolol succinate 25 mg daily) for at least the next few weeks or month to reduce likelihood of recurrence. If she has no adverse effects on the beta-adama, could continue longer-term or she could change to PRN use if desired. Since she does not have atrial flutter or fibrillation, no anticoagulation is necessary. She has no anginal type symptoms but did have ST depression during her tachycardia and mild troponin elevation afterwards, so a stress study would be prudent to further risk stratify (will try to arrange before discharge, but could be obtained as outpatient). At this point, she could ambulate the hallways and be discharged home later today on beta-adama therapy. History of Present Illness Reason for Consultation: tacycardia, possible atrial flutter Requesting Physician: Yana Kuhn MD Attending Physician: Yana Kuhn MD History of Present Illness 73-year-old woman with no past cardiac history who has noted intermittent palpitations from time to time, had tachypalpitations at her PCP office visit and was sent to the ER where ECG initially look like sinus tachycardia but in retrospect was likely an atrial tachycardia. She has longstanding brief episodes of palpitations which are self-limited and not associated with any other symptoms, occurring a few times a month, last episode before yesterday was 2 weeks ago. She denies any unusual or strenuous activity or changes in diet or other precipitating factors. She did note that she was cleaning with bleach yesterday and wondered if this could play a role. Her episode yesterday lasted longer than usual, prompting ER evaluation. She denies any chest pain, dyspnea, diaphoresis, lightheadedness, presyncope, or syncope routinely or at the time of her palpitations. Initial ECG showed probable supraventricular tachycardia, possibly atrial tachycardia with P wave morphology differing from subsequent morphology when her heart rate returned to normal. Possible old inferior infarct and anterolateral ST depression noted. A second ECG showed sinus tachycardia versus atrial tachycardia 113 bpm, ST depression had resolved. A third ECG showed sinus bradycardia at [address] segments and different morphology P wave within the previous 2 tracings. Troponin increased from 3.9 to 24 before dropping back to 6 overnight. Echocardiogram showed EF 55 to 60% with mild LVH and no wall motion abnormalities, RV was borderline dilated, no significant valvular disease. At the time of my evaluation this morning, she had no somatic complaints. Allergies Allergy/AdvReac Type Severity Reaction Status Date / Time Sulfa (Sulfonamide Allergy Intermediate RASH Verified 01/21/24 16:49 Antibiotics) atorvastatin AdvReac Intermediate muscle Verified 01/21/24 16:49 weakness buspirone [From BuSpar] AdvReac Intermediate dizziness Verified 01/21/24 16:49 lovastatin AdvReac Intermediate muscle Verified 01/21/24 16:49 weakness pravastatin AdvReac Intermediate muscle Verified 01/21/24 16:49 weakness simvastatin AdvReac Intermediate muscle Verified 01/21/24 16:49 weakness venlafaxine AdvReac Intermediate Hypertensio Verified 01/21/24 16:49 n Home Medications Medication Instructions Recorded Confirmed Type vit C 250 mg-vit E 90 mg-zinc 40 1 tab PO BID 04/19/20 01/21/24 History mg-copper 1 [id number] capsule (PreserVision AREDS-2) fluticasone propionate 50 1 spray intranasal DAILY PRN 01/06/21 01/21/24 History mcg/actuation nasal Allergy Symptoms spray,suspension (Flonase Allergy Relief) multivitamin 1 tab PO QAM 01/06/21 01/21/24 History escitalopram oxalate 20 mg tablet 20 mg PO DAILY #90 tabs 10/21/23 01/21/24 Rx metronidazole 0.75 % topical cream 1 applic topical .COMPLEX #45 grams 10/30/23 01/21/24 Rx pantoprazole 20 mg tablet,delayed 20 mg PO QAM PRN GERD #30 tabs 12/19/23 01/21/24 Rx release bupropion HCl 150 mg 24 hr tablet, 150 mg PO QAM #30 tabs 01/13/24 01/21/24 Rx extended release (Wellbutrin XL) hydrocortisone 2.5 % topical 1 applic topical BID PRN 01/21/24 01/21/24 History ointment DIRECTED rosuvastatin 5 mg tablet 5 mg PO 2XWK 01/21/24 01/21/24 History Patient History Medical History Encounter for vitamin deficiency screening Chronic gastritis HX: breast cancer dx 1994 - breast - treated surgically Anxiety and depression Encounter for immunization Dysuria Vagina, candidiasis Lymphadenopathy of right cervical region Palpable lymph node Depression Hypercholesterolemia Surgical History H/O excision of mass Rt submandibular Nausea and vomiting after administration of anesthetic agent History of esophagogastroduodenoscopy (EGD) History of colonoscopy History of cholecystectomy History of herniorrhaphy History of tooth extraction History of cataract surgery RT/LEFT H/O laparoscopy H/O right hemicolectomy REOCCURING ADENOMA (BENIGN) Hernia lower abdominal incisional H/O section H/O mastectomy LEFT WITH RECONSTRUCTION Family History Mother Diabetes Lung cancer Family history of diabetes mellitus Brother Diabetes Other No family history of adverse response to anesthesia No family history of bleeding disorder Denies family history of Colon cancer Ovarian cancer Prostate cancer Myocardial infarction Breast cancer Social History Smoking Status: Never smoker Second Hand Exposure: Yes ( A CHILD); Do You Dip or Chew Tobacco: No; Hx Alcohol Use: Yes Alcohol type: wine Alcohol Intake Frequency: 2-3 x/Week Hx Substance Use: No Preferred Language: Frisian Communication Ability: Effective Visual Impairment: No Limitations Hearing Ability: Normal Ophthalmic Dispenser Required: No Beliefs That Will Affect Care: None marital status: Current Living Situation: Spouse current occupational status: retired Other Information That Helps Us Care for You: No Feels Safe at Home: Yes Safety Concerns: Feels Safe At This Time Dental Care, Regularly: Yes Physical Activity Frequency: Does not Exercise Seatbelt Use: always Sunscreen Use: Yes Assistive Devices: Glasses Physical Exam Physical Exam: Adult white female in no distress. BP normotensive. Pulse 55 bpm and regular without ectopy. Respirations 19 and unlabored. Skin: no ecchymoses or generalized lesions. HEENT: unremarkable. Neck: JVP at the clavicle at 90 degrees, no carotid bruits. Lungs: clear. Cardiac: regular rhythm, normal S1-2, no murmur. Abdomen: benign. Extremities: no edema, pulses intact. Neurologic: normal affect and conversation, nonfocal. Results & Data Vital Signs (Past 12 Hours) Vital Signs Temp Pulse Pulse Resp BP Pulse Ox O2 Del Method 01/22/24 10:49 97.9 F 55 L 19 116/68 95 Room Air 01/22/24 07:58 49 L 01/22/24 07:15 98.1 F 58 L 18 154/71 H 97 Room Air 01/22/24 02:27 97.9 F 56 L 20 116/67 96 Room Air Laboratory Results Troponin as noted in HPI. Unremarkable CBC. Normal electrolytes, BUN 7, creatinine 0.69. Magnesium 1.9. Cholesterol 213, HDL 69, LDL 124, ratio 3.1, normal triglycerides. Normal thyroid studies Diagnostic Findings Echocardiogram showed EF 55 to 60% with mild LVH and borderline dilated RV, otherwise unremarkable. No change when compared with resting echo from 2021 stress study. Stress echocardiogram 2021 showed no ischemia at 87% max predicted heart rate. PG Care Time/CCT Total # of Minutes Spent Total Time Spent with Patient: Total time spent is greater than 50% in coordination of care (as documented) at patient's floor/unit and/or counseling patient: Coding Level of Care Code 97339 INT INP/OBS CARE 3/75MIN Diagnoses Palpitations R00.2 Atrial tachycardia I47.19 Hypertension I10 Hypertension type: unspecified (3) Hypertension Hypertension type: unspecified Qualified Code(s): I10 - Essential (primary) hypertension
[2024-01-22] MEDS: METOPROLOL TARTRATE 1 MG/ML VIAL IV PRN (14:05)
[2024-01-22] MEDS: ADENOSINE IV SOLN 3 MG/ML 2 ML VIAL IV ONE (14:15)
[2024-01-22] MEDS: METOPROLOL SUCC 25MG EXT REL TAB PO ONE (15:31)
--- NOTE | 2024-01-22 15:35 | Discharge Summary ---
Date of Service January 22, 2024 Admission HPI Per Admitting Provider Norma is a 73-year-old female with a past medical history significant for anxiety, GERD, hyperlipidemia, who presented to the [facility] ED on 01/21/2024 at the recommendation of her PCP after she was noted to be persistently tachycardic while at her PCPs office. Per the ED staff and review of the PCP note from today the patient presented to the PCP office due to two 1 month follow-up as she been started on Wellbutrin approximately 1 month ago for her anxiety. While at the office she was noted to be tachycardic with heart rate into the 130s. On arrival to the ED she was noted to be tachycardic with heart rate in the 130s to 150s but otherwise stable. Labs including CBC, INR, CMP, high-sensitivity troponin, TSH were within normal limits. Potassium was noted to be 3.7 and magnesium was noted to be 1.9. Her initial EKG was obtained when heart rate was in the 140s and was initially read as sinus tachycardia. Chest x-ray was read as negative for acute findings. The patient was initially given 1 L normal saline in the ED and 5 mg IV Lopressor. Repeat EKGs were obtained when heart rate was in the 110s and the patient appeared to have flutter waves in leads V3 and lead to. Prior to admission she was given an additional 5 mg IV Lopressor. Patient was sitting in bed in no acute distress at the time exam with her bedside. She confirms the above history. States that she had a distant history of tachycardia and was seen by the [facility] cardiology group in the past for this as she had a Holter monitor placed. She states at that time because the episodes were very infrequent and lasted short period of time no intervention or medication warranted. Patient denies recent fever/chills, chest pain, pleuritic chest pain, cough/hemoptysis, abdominal pain, nausea/vomiting, diarrhea, dysuria, hematuria, melena, lower extremity swelling, and recent trauma. She is a full code and her is her POA. I had a discussion with the patient and her regarding starting anticoagulation tonight with possible atrial flutter and [id number] score of 2. The patient denies previous history of major bleeding and denies any recent bleeding. At this time she is in agreement with starting heparin drip but would want to discuss further with cardiology tomorrow regarding long-term anticoagulation if required. Please refer to Dr. Gutierrez attestation for any changes to the treatment plan Principal Diagnosis Atrial Tachycardia Discharge Exam The patient is awake, alert and oriented 3, well developed and well nourished, normocephalic and atraumatic, lying in bed and in no acute distress. HEENT--PERRL, EOMI, mucous membranes and oropharynx mildly dry Neck--supple. No JVD. No bruits. Thyroid normal, trachea midline, no adenopathy. Heart--normal S1 and S2. No murmurs, rubs or gallops. Lungs--clear bilaterally, no respiratory distress, no accessory muscle use. Abdomen--normal bowel sounds and soft. Extremities--no cyanosis or clubbing. No edema. Dermatologic--normal skin turgor, normal color, no abnormal lymph nodes, no rash. Neurologic--cranial nerves II through XII grossly intact. Rheumatologic--normal range of motion. Psychiatric--normal affect. Discharge Data Allergies Allergy/AdvReac Type Severity Reaction Status Date / Time Sulfa (Sulfonamide Allergy Intermediate RASH Verified 01/21/24 16:49 Antibiotics) atorvastatin AdvReac Intermediate muscle Verified 01/21/24 16:49 weakness buspirone [From BuSpar] AdvReac Intermediate dizziness Verified 01/21/24 16:49 lovastatin AdvReac Intermediate muscle Verified 01/21/24 16:49 weakness pravastatin AdvReac Intermediate muscle Verified 01/21/24 16:49 weakness simvastatin AdvReac Intermediate muscle Verified 01/21/24 16:49 weakness venlafaxine AdvReac Intermediate Hypertensio Verified 01/21/24 16:49 n Consultations 01/21/24 17:13 ED Decision to Admit Stat 01/21/24 18:03 Consult Cardiology Routine Ordered Studies 01/21/24 17:42 CT angio chest PE protocol Stat Hospital Course (1) Tachycardia: Patient was sent to the hospital from her PCPs office after she was found to be tachycardic Patient denies chest pain, palpitations In the emergency department, EKG was done which showed evidence of sinus tachycardia, or possibly atrial tachycardia,Some ST changes on the anterior leads Patient received a couple of doses of Lopressor and IV fluids. She was started on heparin by weight CT chest did not show any evidence of PE Cardiology has been consulted 2D echo was done with did not show any acute pathology, ejection fraction 50 to 55%, no wall motion abnormalities Patient underwent stress test which was normal discharge home on heart monitor (2) Hyperlipidemia: continue rosuvastatin (3) Anxiety: Holding Wellbutrin for now with possible side effect of tachycardia Can continue Lexapro at this time Plan Continue to monitor Await recommendations by cardiology Total Time Total Time Spent Total Time Spent (In Minutes): 35 Discharge Plan Discharge Items Patient Disposition: Home - Self-Care Reason For Visit: TACHYCARDIA, POSSIBLE ATRIAL FLUTTER Discharge Diagnosis: atrial tachycardia Activity: Resume your previous activity Non-emergency contact: Primary Care Provider and Auto Service Instructor Call non-emergency contact if: you have any medication questions Follow-up/Referrals: Maritza Hu MD [Primary Care Provider] - Diet: Regular Addtl Attending Provider Instructions: Please product picker your heart monitor at the air deodorizer servicer office Pending Studies at Discharge: No Stand-Alone Forms: [facility] [place] [employer], Smoking Cessation Medications and DC Order Prescriptions: New metoprolol succinate [Toprol XL] 25 mg tablet extended release 24 hr 25 mg PO DAILY Qty: 30 0RF Continued escitalopram oxalate 20 mg tablet 20 mg PO DAILY Qty: 90 1RF metronidazole 0.75 % cream 1 applic topical .COMPLEX Qty: 45 5RF Rx Instructions: Apply to the face 1-2 times a day pantoprazole 20 mg tablet,delayed release (DR/EC) 20 mg PO QAM PRN (Reason: GERD) Qty: 30 1RF Rx Instructions: take 1/2 prior to breakfast bupropion HCl [Wellbutrin XL] 150 mg tablet extended release 24 hr 150 mg PO QAM Qty: 30 1RF PreserVision AREDS-2 [id number] [id number] Capsule 1 tab PO BID multivitamin Tablet 1 tab PO QAM fluticasone propionate [Flonase Allergy Relief] 50 mcg/actuation spray,suspension 1 spray intranasal DAILY PRN (Reason: Allergy Symptoms) Rx Instructions: administer into each nostril rosuvastatin 5 mg tablet 5 mg PO 2XWK hydrocortisone 2.5 % ointment 1 applic topical BID PRN (Reason: DIRECTED) Rx Instructions: Apply BID for 1 week, then daily until cleared. Moisturize the face daily. Discharge Orders: Discharge Order (Routine); Ordered 01/22/24 Ordered By: Yana Kuhn Admission Data Admit Date/Time: 01/21/24 17:16 Attending Provider: Yana Kuhn Admit Provider: Steve Gutierrez Primary Care Provider: Maritza Hu V. Other Providers: Steve Gutierrez; Naseem Billingsley Coding Level of Care Code 15835 INP/OBS DISCH >30 MIN Diagnoses Tachycardia R00.0 Hyperlipidemia E78.5 Anxiety F41.9 Time Spent (min) 35
--- NOTE | 2024-01-22 16:28 | XCELERA ---
[id number] [email or web address]\[id number]
[2024-01-23] MEDS ORDERED: ROSUVASTATIN CALCIUM 5 MG TAB PO SCH (09:00)
== END 2024-01-22 16:05 | disposition home or self-care (01) | DRG 310 ==
LOC: ED 14:43 → SUATTDRO 17:16 → 2S 17:16